=== PATIENT | male | born 1995 | race African-American/Black ===

== ENCOUNTER 2018-09-13 02:00 | Emergency (ER) | payer OTHER ==
[2018-09-13 02:11] VITALS: BP 152/88; PULSE 59; RESP 18; TEMP 97.7
--- NOTE | 2018-09-13 02:34 | XR ---
EXAM: XR Right Hand Complete, 3 or More Views CLINICAL HISTORY: ITS.REASON XR Reason: Pain TECHNIQUE: Frontal, lateral and oblique views of the right hand. COMPARISON: No relevant prior studies available. FINDINGS: Bones/joints: No acute fracture. No dislocation. Soft tissues: Unremarkable. No radiopaque foreign body. IMPRESSION: No acute findings.
--- NOTE | 2018-09-13 02:42 | ED ---
Upper Extremity HPI - General Chief Complaint: Extremity Injury, Upper Stated Complaint: Hand Injury Time Seen by Provider: 09/13/18 02:13 Source: patient Mode of arrival: ambulatory Limitations: physical limitation - History of Present Illness Initial Comments: 22-year-old male patient presents to the emergency department today for evaluation of right hand injury. Patient states 2-3 hours ago he is playing football when he got his hand caught in another players helmet causing it to hyperextend. Patient states his been having soft tissue swelling and pain to the dorsal aspect of the hand since. Patient states he does have some tingling sensation to the tips of his fingers. He is able to move the fingers without difficulty. He denies any previous injury to the hand. Denies any other injuries. Patient denies any headache, neck pain, back pain, chest pain, shortness of breath, dizziness, weakness, abdominal pain, nausea, vomiting, or difficulties with bowel movements or urination. - Related Data Previous Rx's Medication Instructions Recorded Cephalexin [Keflex] 500 mg PO Q6H #40 cap 01/06/17 Ibuprofen [Motrin] 600 mg PO Q8HR PRN #30 tab 09/13/18 Allergies Allergy/AdvReac Type Severity Reaction Status Date / Time No Known Allergies Allergy Verified 09/13/18 02:11 Review of Systems ROS Statement: Those systems with pertinent positive or pertinent negative responses have been documented in the HPI. ROS Other: All systems not noted in ROS Statement are negative. Past Medical History Past Medical History: No Reported History History of Any Multi-Drug Resistant Organisms: None Reported Past Surgical History: Orthopedic Surgery Additional Past Surgical History / Comment(s): rt ankle injury, Past Psychological History: No Psychological Hx Reported Smoking Status: Never smoker Past Alcohol Use History: None Reported Past Drug Use History: None Reported General Exam Limitations: physical limitation General appearance: alert, in no apparent distress, other (Physical well- developed, well-nourished adult male patient in no acute distress. Vital signs upon presentation are temperature 97.7F, pulse 59, respirations 18, blood pressure 152/88, pulse ox 98% on room air.) Eye exam: Present: normal appearance, PERRL, EOMI. Absent: scleral icterus, conjunctival injection, periorbital swelling ENT exam: Present: normal exam, normal oropharynx, mucous membranes moist Respiratory exam: Present: normal lung sounds bilaterally. Absent: respiratory distress, wheezes, rales, rhonchi, stridor Cardiovascular Exam: Present: regular rate, normal rhythm, normal heart sounds. Absent: systolic murmur, diastolic murmur, rubs, gallop, clicks Extremities exam: Present: full ROM, tenderness (Tenderness over the dorsal aspect of the right hand), normal capillary refill, other (Patient has soft tissue swelling and ecchymosis noted over the dorsal aspect of the right hand. Fingers are pink, warm, dry. Cap refills less than 3 seconds. Radial pulses 2+ and equal bilaterally. No forearm or elbow tenderness. No sign of radial, median, ulnar nerve dysfunction.). Absent: normal inspection, pedal edema, joint swelling, calf tenderness Back exam: Present: normal inspection Neurological exam: Present: alert, oriented X3, CN II-XII intact Psychiatric exam: Present: normal affect, normal mood Skin exam: Present: warm, dry, intact, normal color. Absent: rash Course Vital Signs 09/13/18 02:08 Temperature 97.7 F Pulse Rate 59 L Respiratory 18 Rate Blood Pressure 152/88 O2 Sat by Pulse 98 Oximetry Medical Decision Making - Medical Decision Making 22-year-old male patient presents to the emergency department today for evaluation of right hand injury. Physical examination showed soft tissue swelling over the right hand. Neurovascular status is intact. X-ray was obtained and showed no acute fractures or dislocations. Patient symptoms are consistent with sprain of the right hand. Placed in an Bravo wrap. He is educated regarding rest, ice, elevation. Is instructed to follow-up with orthopedics for further evaluation. Return parameters discussed in detail. He verbalizes understanding and agrees with this plan. - Radiology Data Radiology results: report reviewed, image reviewed 3 views of the right hand are obtained. Report reviewed in its entirety. Impression by Dr. Mejía shows no acute findings. Disposition Clinical Impression: Sprain of right hand Disposition: HOME SELF-CARE Condition: Good Instructions (If sedation given, give patient instructions): Hand Sprain (ED) Additional Instructions: Keep Bravo wrap on for comfort and support. Rest, ice, elevate the hand. Rest for at least 1 week. Follow-up with orthopedics for recheck in 1-2 days. Have repeat x-ray performed in 7-10 days if pain symptoms persist. Return to the emergency department immediately for any new, worsening, or concerning symptoms. Prescriptions: Ibuprofen [Motrin] 600 mg PO Q8HR PRN #30 tab PRN Reason: Pain Is patient prescribed a controlled substance at d/c from ED?: No Referrals: Harjinder Duran MD [Primary Care Provider] - 1-2 days Ortiz Roa MD [Medical Doctor] - 1-2 days Time of Disposition: 02:41
== END 2018-09-13 02:54 | disposition home or self-care (01) ==
LOC: EC 02:00
DX: S63.91XA Sprain of unspecified part of right wrist and hand, initial encounter (principal); X50.9XXA Other and unspecified overexertion or strenuous movements or postures, initial encounter; Y93.61 Activity, american tackle football; Y92.321 Football field as the place of occurrence of the external cause
CPT/HCPCS: 99283